=== PATIENT | female | born 1985 | race Caucasian/White ===

== ENCOUNTER 2018-06-05 20:01 | Emergency (ER) | payer MEDICAID ==
--- NOTE | 2018-06-06 00:51 | ER Document Report ---
ED Cardiac - General Chief Complaint: Chest Pain Stated Complaint: CHEST/RIB PAIN Time Seen by Provider: 06/06/18 00:51 Mode of Arrival: Ambulatory Information source: Patient Notes: Patient is a 32-year-old female with no significant past medical history who presents with 2 weeks of nonproductive cough. She had a coughing episode earlier last night that resulted in sudden onset pain to the right ribs that radiates to the back when she coughs. She denies shortness of breath, no other chest pain, no difficulty breathing, no fevers or chills. She denies known injuries or sick contacts to her knowledge. TRAVEL OUTSIDE OF THE [place] IN LAST 30 DAYS: No - HPI Patient complains to provider of: Chest pain Was the onset of pain: Sudden When did pain begin: Last night Is the pain a: New problem Chest pain location: Pleuritic, Under breast, Other - Left lateral chest wall and flank Quality of pain: Achy, Sharp Chest pain radiation location: None Severity now: Mild Severity at worst: Moderate Pain level currently: 1 Chest pain precipitating factors: Coughing Cardiac risk factors: None Positive cardiac history: No Associated symptoms: None Exacerbated by: Coughing Relieved by: Nothing Similar symptoms previously: No Recently seen / treated by doctor: No - Related Data Allergies/Adverse Reactions: No Known Allergies Allergy (Verified 11/17/14 12:08) Past Medical History - General Information source: Patient - Social History Smoking Status: Current Every Day Smoker Cigarette use (# per day): Yes - 1/2 pack Frequency of alcohol use: None Drug Abuse: None Lives with: Family Family History: Reviewed & Not Pertinent Patient has suicidal ideation: No Patient has homicidal ideation: No - Medical History Medical History: Negative - Past Medical History Cardiac Medical History: Reports: None Pulmonary Medical History: Reports: None EENT Medical History: Reports: None Neurological Medical History: Reports: None Endocrine Medical History: Reports: None Renal/ Medical History: Reports: None Malignancy Medical History: Reports: None GI Medical History: Reports: None Musculoskeletal Medical History: Reports None Skin Medical History: Reports None Psychiatric Medical History: Reports: None Traumatic Medical History: Reports: None Infectious Medical History: Reports: None Surgical Hx: Negative Past Surgical History: Reports: None - Immunizations Immunizations up to date: Yes Hx Diphtheria, Pertussis, Tetanus Vaccination: Yes Review of Systems - Review of Systems Constitutional: No symptoms reported EENT: No symptoms reported Cardiovascular: No symptoms reported Respiratory: See HPI, Cough, Other - Rib pain Gastrointestinal: No symptoms reported Genitourinary: No symptoms reported Female Genitourinary: No symptoms reported Musculoskeletal: No symptoms reported Skin: No symptoms reported Hematologic/Lymphatic: No symptoms reported Neurological/Psychological: No symptoms reported -: Yes All other systems reviewed and negative Physical Exam - Vital signs Vitals: Temp Pulse Resp BP Pulse Ox 98.8 F 88 24 H 152/87 H 99 06/05/18 20:17 06/05/18 20:17 06/05/18 20:17 06/05/18 20:17 06/05/18 20:17 Interpretation: Normal - Notes Notes: Well-appearing in no acute distress - General General appearance: Appears well, Alert - HEENT Head: Normocephalic, Atraumatic Eyes: Normal Pupils: PERRL - Respiratory Respiratory status: No respiratory distress Chest status: Tender - Moderate tenderness to the right lateral rib cage as well as the posterior flank, no crepitance, no paradoxical movement, Pain with cough. No: Ecchymosis Breath sounds: Normal Chest palpation: Normal - Cardiovascular Rhythm: Regular Heart sounds: Normal auscultation Murmur: No - Abdominal Inspection: Normal Distension: No distension Bowel sounds: Normal Tenderness: Nontender Organomegaly: No organomegaly - Rectal Notes: Deferred - Genitourinary Notes: Deferred - Back Back: Normal, Nontender - Extremities General upper extremity: Normal inspection, Nontender, Normal color, Normal ROM, Normal temperature General lower extremity: Normal inspection, Nontender, Normal color, Normal ROM, Normal temperature, Normal weight bearing. No: Paula's sign - Neurological Neuro grossly intact: Yes Cognition: Normal Orientation: AAOx4 [place] Coma Scale Eye Opening: Spontaneous [place] Coma Scale Verbal: Oriented [place] Coma Scale Motor: Obeys Commands [place] Coma Scale Total: 15 Speech: Normal Motor strength normal: LUE, RUE, LLE, RLE Sensory: Normal - Psychological Associated symptoms: Normal affect, Normal mood - Skin Skin Temperature: Warm Skin Moisture: Dry Skin Color: Normal Course - Re-evaluation Re-evalutation: 06/06/18 02:16 Duration of cough makes viral etiology less likely, could be atypical pneumonia versus less likely viral pneumonia versus influenza versus pertussis. Patient only coughed one time during our encounter. Will obtain chest x-ray with right ribs included to assess for possible fracture however unlikely. Patient will be given intramuscular Decadron and will be reassessed. 06/06/18 03:57 X-rays negative. Patient will be discharged home with return precautions and follow-up. Patient voices both understanding and agreeing with the plan. - Vital Signs Vital signs: Temp Pulse Resp BP Pulse Ox 98.8 F 88 24 H 152/87 H 99 06/05/18 20:17 06/05/18 20:17 06/05/18 20:17 06/05/18 20:17 06/05/18 20:17 - Diagnostic Test Radiology reviewed: Reports reviewed - EKG Interpretation by Me EKG shows normal: Sinus rhythm Rate: Normal Rhythm: NSR Voltage: No: Increased voltage, Consistant with LVH, Decreased voltage, Throughout, Limb leads Heart block present: No: 1st Degree, Mobitz 1, Mobitz 2, CHB (3rd degree block) When compared to previous EKG there are: Previous EKG unavailable Discharge - Discharge Clinical Impression: Cough Condition: Good Disposition: HOME, SELF-CARE Instructions: Cough Suppressant & Expectorant Medications Additional Instructions: Please follow-up with your primary physician as needed. Return to the emergency department if you experience difficulty breathing, worsening rib pain, or have any other concerning symptom. Prescriptions: Azithromycin [Zithromax 250 mg Tablet] 250 mg PO ASDIR PRN #6 tablet PRN Reason: Hydrocodone/Chlorphen P-Stirex [Tussionex Pennkinetic Susp] 10 ml PO BID #[id number] Forms: Return to Work Print Language: Urdu
[2018-06-06] MEDS ORDERED: DEXAMETHASONE SOD PHOS INJ 10 MG/1 ML VIAL IM ONE (01:51)
--- NOTE | 2018-06-06 02:30 | RADIOLOGY REPORT (SQ) ---
Right RIBS two view on 06/06/2018 at 2:25 AM CLINICAL INDICATION: Right-sided rib pain, cough COMPARISON: None FINDINGS: Visualized lungs are clear. Cardiac, hilar and mediastinal contours are within normal limits. Pulmonary vascularity is within normal limits. No acute right rib fracture is noted. IMPRESSION: No acute abnormality.
[2018-06-06 04:34] VITALS: BP 135/82
--- NOTE | 2018-06-06 13:41 | EKG REPORT ---
SEVERITY:- NORMAL ECG - SINUS RHYTHM : Confirmed by: Nancy Delong MD 06-Jun-2018 13:40:25
== END 2018-06-06 04:34 | disposition home or self-care (01) ==
LOC: ER 20:01
DX: R05 Cough (principal); R07.81 Pleurodynia; R07.9 Chest pain, unspecified; F17.210 Nicotine dependence, cigarettes, uncomplicated
CPT/HCPCS: 93005; 99284; 96372; 71100; 93010; J1100